=== PATIENT | female | born 1965 | race Caucasian/White ===

== ENCOUNTER 2016-12-04 21:07 | Emergency (ER) | payer OTHER ==
[~2016-12-04] VITALS: Ht 162.6 cm; Wt 74.8 kg
[2016-12-04 21:15] VITALS: BP 110/76
--- NOTE | 2016-12-04 21:22 | ED NECK/BACK PAIN COMPLAINT ---
History of Present Illness General Chief Complaint: Low Back Pain/Injury Stated Complaint: LOWER BACK PAIN Source: patient Exam Limitations: no limitations Vital Signs & Intake/Output Vital Signs & Intake/Output Vital Signs Date Time Temp Pulse Resp B/P Pulse O2 O2 Flow FiO2 Ox Delivery Rate 12/04 2115 97.8 88 20 110/76 99 Room Air Allergies Coded Allergies: NO KNOWN ALLERGIES (02/22/14) Reconcile Medications Atorvastatin Calcium 20 MG TABLET 1 TAB PO DAILY HEART HEALTH (Reported) Bupropion HCl (Bupropion XL) 150 MG TAB.ER.24H 1 TAB PO QAM MENTAL HEALTH ( Reported) Cyclobenzaprine HCl 10 MG TABLET 1 TAB PO TID PRN muscle spasm Escitalopram Oxalate 10 MG TABLET 1 TAB PO DAILY MENTAL HEALTH (Reported) Gabapentin 100 MG CAPSULE 1 CAP PO TID NEUROPATHY (Reported) Ibuprofen 800 MG TABLET 1 TAB PO TID PRN pain Tramadol HCl (Ultram) 50 MG TABLET 1-2 TAB PO TID PRN pain thirty...[id number] Triage Note: RECEIVED 51 YO FEMALE C/O BILATERAL LOWER BACK PAIN RADIATING TO HIPS AND KNEES, STARTED YESTERDAY WHILE STANDING UP. NO RECENT INJURY. PAIN WORSENS WITH CHANGING POSITION. Triage Nurses Notes Reviewed? yes Onset: Gradual Duration: day(s): Quality/Severity: moderate Location: lumbar spine Radiation: none Context: "I felt my back go out." Method of Injury: unknown Loss of Consciousness: no loss of consciousness Modifying Factors: movement Associated Symptoms: lower back pain HPI: 51-year-old woman in prior good health presents with 2 days of lower back pain. She says, "I threw my back out." She notes she had difficulty sleeping. She notes difficulty with ambulation due to the pain, but notes no weakness numbness in her lower extremities. She is otherwise well. Past History Travel History Traveled to [place] past 21 day No Medical History Any Pertinent Medical History? see below for history Neurological: NONE EENT: NONE Cardiovascular: hyperlipidemia Respiratory: NONE Gastrointestinal: NONE Hepatic: NONE Renal: NONE Musculoskeletal: NONE Psychiatric: anxiety, depression Surgical History Surgical History: none Psychosocial History What is your primary language Icelandic Tobacco Use: Never used Family History Hx Contributory? No Review of Systems Review of Systems Constitutional: Reports: no symptoms. Eyes: Reports: no symptoms. Ears, Nose, Throat, Mouth: Reports: no symptoms. Respiratory: Reports: no symptoms. Cardiovascular: Reports: no symptoms. Gastrointestinal/Abdominal: Reports: no symptoms. Musculoskeletal: Reports: no symptoms. Skin: Reports: no symptoms. Neurological/Psychological: Reports: no symptoms. All Other Systems: Reviewed and Negative Physical Exam Physical Exam General Appearance: well developed/nourished, mild distress Head: atraumatic Eyes: Bilateral: normal appearance. Ears, Nose, Throat, Mouth: hearing grossly normal Neck: normal inspection, supple, full range of motion, no midline tenderness Respiratory: normal breath sounds Cardiovascular: regular rate/rhythm Gastrointestinal: soft, non-tender Back: normal inspection, muscle spasm, no vertebral tenderness, muscle spasm in lower paraspinous muscles. Extremities: normal range of motion Neurologic/Psych: awake, alert, oriented x 3, normal mood/affect Skin: intact, normal color, warm/dry Progress Differential Diagnosis: herniated disc, myofascial strain, sciatica Plan of Care: pt given toradol, flexeril, morphine 4mg im... after 2 hours in ED, she is feeling well. pt safe for discharge. Departure Departure Disposition: HOME OR SELF CARE Condition: Stable Clinical Impression Primary Impression: Back pain Referrals: PATIENT HAS NO PRIMARY CARE DR Departure Forms: Customer Survey General Discharge Information Prescriptions: Current Visit Scripts Tramadol HCl (Ultram) 1-2 TAB PO TID PRN pain #30 TAB thirty...[id number] Ibuprofen 1 TAB PO TID PRN pain #90 TAB Ref 1 Cyclobenzaprine HCl 1 TAB PO TID PRN muscle spasm #30 TAB Ref 1
[2016-12-04] MEDS ORDERED: ATORVASTATIN CA20 M1 PO (21:39)
[2016-12-04] MEDS ORDERED: ESCITALOPRAM OX10 MG PO (21:40)
[2016-12-04] MEDS ORDERED: GABAPENTIN100 M2 PO (21:41)
[2016-12-04] MEDS ORDERED: BUPROPION XL150 MG PO (21:41)
[2016-12-04] MEDS ORDERED: ULTRAM50 M1 PO (22:48)
[2016-12-04] MEDS ORDERED: CYCLOBENZAPRINE10 M1 PO (22:48)
[2016-12-04] MEDS ORDERED: IBUPROFEN800 M1 PO (22:48)
== END 2016-12-04 23:27 ==
LOC: ERH 21:07
DX: M54.5 Low back pain (principal)
CPT/HCPCS: 96372; J1885